=== PATIENT | female | born 1940 | race Caucasian/White ===

== ENCOUNTER 2024-11-30 18:36 | Observation (INO) | payer OTHER, SELFPAY ==
[2024-11-30] VITALS (7 sets, daily range): BP systolic 110–172; BP diastolic 71–122; BMI 24.4; BMI 23.6
--- NOTE | 2024-11-30 12:39 | ED.GENMED ---
ED Provider Triage
<Kristin Tadeo NP - Last Filed: 11/30/24 12:44>
-
Patient seen by provider in Triage?: Seen in Triage
Attestation: A medical screening examination has been initiated by a qualified medical provider. Based on the assessment performed at this time, it has been determined that an emergent medical condition may exist and the patient has been informed
that further medical evaluation and possible additional diagnostic testing may be needed.
HPI: 84-year-old female presents 'I was having severe dizziness at [facility] while rushing (walking fast)to get to a meeting about 1015 this a.m. has had 'breathlessness' for about a month with a 'barky cough.' No known sick contacts. Patient
is on Eliquis for A-fib. Had 'a little' right upper chest pain that has passed.
GENERAL: Alert , in no apparent distress
EYE: No visual abnormalities.
NECK: Trachea midline
ENT: No visible abnormalities.
LUNGS: No acute respiratory distress
NEUROLOGICAL: Alert and oriented
SKIN: Skin intact. No visible changes.
MUSCULOSKELETAL: Moving extremities normally
PSYCH: Normal and appropriate interaction.
This is a medical evaluation conducted in person to initiate diagnostic evaluation and provide initial therapeutics. Please see further documentation by the treating clinician.
History of Present Illness
<Kristin Tadeo NP - Last Filed: 11/30/24 12:44>
General
Chief Complaint: Dizziness
Time Seen by Provider: 11/30/24 14:16
<Becky Fernandez MD - Last Filed: 11/30/24 17:10>
General
Source: patient
History of Present Illness
History of Present Illness:
This patient is an 84-year-old female presents to the emergency department after having an episode of dizziness described as 'room spinning'. When she describes a spinning, she uses her arm in a circular motion to demonstrate what it felt like.
This happened while she was walking down the [place] and she promptly sat down and the spinning continued for 15 to 20 minutes. Now, she says she feels fine. She did not have a sense that she might pass out. She denies associated fever, chest pain,
blurry vision, double vision, trouble swallowing, change in speech, fall, head injury, numbness, tingling, clumsiness, palpitations, or other complaints. Of note, the patient has been describing dyspnea on exertion for the last few months. She saw
a drop wire builder and a midwife practitioner and workup has been unremarkable thus far. She is not currently dyspneic and did not describe dyspnea when she was feeling dizzy.
Past History
<Becky Fernandez MD - Last Filed: 11/30/24 17:10>
Past History
ED Past Medical History: GERD, HTN and Hypothyroidism
ED Past Surgical History: Orthopedic
Social History
Tobacco: Non-smoker
Alcohol: Occasional
Drug: None
Living: assisted living
Phy Exam
<Becky Fernandez MD - Last Filed: 11/30/24 17:10>
Physical Exam
Physical Exam:
GENERAL: Alert , in no apparent distress
EYE: pupils equal and reactive, EOMI, no nystagmus, no photophobia
NECK: Supple, no significant adenopathy.
ENT: o/p clr, mmm.
CARDIAC: Regular rate and rhythm .
LUNGS: Clear breath sounds bilaterally, no acute respiratory distress, no wheezes/rales/rhonchi
ABDOMEN: Soft, without focal tenderness, no r/g, no cvat
NEUROLOGICAL: Alert and oriented, no focal neuro deficits, motor 5 out of 5, sensory intact, cranial nerves II through XII intact, [id number] normal, gait normal
SKIN: Warm and dry, skin intact.
MUSCULOSKELETAL: No edema, well perfused.
PSYCH: Normal and appropriate interaction.
Course
<Kristin Tadeo NP - Last Filed: 11/30/24 12:44>
Orders/Labs/Results
Orders:
Orders
11/30/24 12:32
Electrocardiogram (*1) Urgent
Reason for Study: Vertigo / Dizzy
EKG- Treatment ONCE
11/30/24 12:43
Complete Blood Count/With Diff Urgent
Comprehensive Metabolic Panel Urgent
NT-proBNP Urgent
Comment: ADD ON
Troponin I Urgent
11/30/24 12:44
Add On- LAB Urgent
Tests Added?: BNP
11/30/24 14:33
CT Head W/o Iv Contrast Urgent
Comment:
Reason For Exam: dizzy (spinning)
11/30/24 14:38
CR Chest - 2 Views Urgent
Comment:
Reason For Exam: sob
Abnormal Lab Results
11/30/24
12:43
MCHC 32.3 L g/dL
(33.0-37.0)
RDW 15.6 H %
(11.5-14.5)
Absolute Monos (auto) 0.7 H 10^3/uL
(0.1-0.6)
Lymphocytes % 15.9 L %
(20.5-51.1)
Monocytes % 9.8 H %
(1.7-9.3)
Sodium 133 L mmol/L
(135-145)
Carbon Dioxide 19 L mmol/L
(22-30)
BUN 32 H mg/dl
(7-17)
Glucose 147 H mg/dl
(70-99)
ALT 64 H U/L
(0-35)
11/30/24 12:43
11/30/24 12:43
Vital Signs
Initial and Last Documented VS:
Initial Vital Signs
Temp Pulse Resp BP Pulse Ox
98.1 F 49 16 133/71 98
11/30/24 12:28 11/30/24 12:28 11/30/24 12:28 11/30/24 12:28 11/30/24 12:28
Last Documented Vital Signs
Temp Pulse Resp BP Pulse Ox
98.1 F 58 14 165/92 97
11/30/24 12:28 11/30/24 14:31 11/30/24 14:31 11/30/24 14:01 11/30/24 14:31
<Becky Fernandez MD - Last Filed: 11/30/24 17:10>
Orders/Labs/Results
Orders:
Orders
11/30/24 12:32
Electrocardiogram (*1) Urgent
Reason for Study: Vertigo / Dizzy
EKG- Treatment ONCE
11/30/24 12:43
Complete Blood Count/With Diff Urgent
Comprehensive Metabolic Panel Urgent
NT-proBNP Urgent
Comment: ADD ON
Troponin I Urgent
11/30/24 12:44
Add On- LAB Urgent
Tests Added?: BNP
11/30/24 14:33
CT Head W/o Iv Contrast Urgent
Comment:
Reason For Exam: dizzy (spinning)
11/30/24 14:38
CR Chest - 2 Views Urgent
Comment:
Reason For Exam: sob
Abnormal Lab Results
11/30/24
12:43
MCHC 32.3 L g/dL
(33.0-37.0)
RDW 15.6 H %
(11.5-14.5)
Absolute Monos (auto) 0.7 H 10^3/uL
(0.1-0.6)
Lymphocytes % 15.9 L %
(20.5-51.1)
Monocytes % 9.8 H %
(1.7-9.3)
Sodium 133 L mmol/L
(135-145)
Carbon Dioxide 19 L mmol/L
(22-30)
BUN 32 H mg/dl
(7-17)
Glucose 147 H mg/dl
(70-99)
ALT 64 H U/L
(0-35)
11/30/24 12:43
11/30/24 12:43
Vital Signs
Initial and Last Documented VS:
Initial Vital Signs
Temp Pulse Resp BP Pulse Ox
98.1 F 49 16 133/71 98
11/30/24 12:28 11/30/24 12:28 11/30/24 12:28 11/30/24 12:28 11/30/24 12:28
Last Documented Vital Signs
Temp Pulse Resp BP Pulse Ox
98.1 F 58 14 165/92 97
11/30/24 12:28 11/30/24 14:31 11/30/24 14:31 11/30/24 14:01 11/30/24 14:31
<Becky Fernandez MD - Last Filed: 11/30/24 17:10>
Update Note
Update Note:
Patient presents to the Emergency Department with ___dizziness
Number and Complexity of Problems Addressed at the Encounter
� Chronic conditions affecting care:
� Acute Exacerbation and/or Progression of Chronic Illness:
� Differential Diagnosis includes:
Amount and/or Complexity of Data to be Reviewed and Analyzed
� I performed an independent evaluation of and my interpretation is:
EKG: Read by me, A-fib, bradycardic, no acute ischemic
CT:. No CT evidence for acute intracranial hemorrhage or transcortical infarct.
2. CHRONIC BILATERAL CEREBELLAR INFARCTS (moderate in size in the right and small to moderate in size on the left).
3. Small chronic transcortical infarcts in the superior right frontal and parietal lobes.
4. Severe white matter leukoaraiosis in the frontal and parietal lobes.
5. Mild diffuse cerebral and cerebellar volume loss.
Xrays:Moderate cardiomegaly.
2. Mild bilateral lung hyperinflation.
3. Mild scarring in both lower lungs.
4. Severe thoracic and lumbar discogenic degenerative disease.
5. Severe osteoarthritis of the right glenohumeral joint.
Laboratory Studies: Generally unremarkable
Other:
� Review of other/old records reveals:
� Clinical information was obtained by an independent historian:
� Prescriptions/Medications Considered but not given:
� Further testing considered but not performed:
Risk of Complications and/or Morbidity or Mortality of Patient Management
� Social determinants of health affecting care:
� Discussion with other providers (PCP, Hospitalists, Consultants, etc):
� Escalation of care including admission/observation vs risk of discharge considered: 5:07 PM patient sitting upright in bed, does report still feeling dizzy. She was unaware of ever having had a stroke before, the CT findings
that I described to her are new for her to hear and understand. Particularly given distribution of chronic infarcts, high concern that today's events may reflect a new infarct in the cerebellar area. Recommend admission, aspirin, likely MR
neurology consult. Patient is not a tPA/TNK candidate given NIH equal to 0.
ED Attending Note
<Kristin Tadeo NP - Last Filed: 11/30/24 12:44>
-
Portions of this chart may have been created with voice recognition software.� Occasional wrong word or��sound alike� substitutions may have occurred due to the inherent limitations of voice recognition software.
Discharge Plan
Departure
Patient Disposition: Admit
Date of Disposition: 11/30/24
Time of Disposition: 17:08
Admit to: Telemetry
Presentation/result/management discussed w/ accepting MD/DO: Hospitalist
Condition: Good
Discharge Problem:
Vertigo
Referrals:
Yumiko Balbuena MD [Family Provider] -
Interventions
Interventions:
*Risk Screen - Suicide Last Done: 11/30/24 12:28
*General Assessment Last Done: 11/30/24 14:04
*Neglect/Abuse Screening Last Done: 11/30/24 12:28
ED- Fall Risk Assessment Last Done: 11/30/24 14:04
*ED COVID-19 Vaccine History Last Done: 11/30/24 14:04
ED- Neurological Assessment Last Done: 11/30/24 14:04
ED- Cardiac Assessment Last Done: 11/30/24 14:04
Discharge Date and Time
Print Language: ARABIC
[2024-11-30 13:06] LABS: % Basophils 0.3 % (0-2); % Eosinophils 0.9 % (0-6); % Immature Granulocytes 0.3 % (0-0.5); % Lymphocytes 15.9 % (20.5-51.1); % Monocytes 9.8 % (1.7-9.3); % Neutrophils 72.8 % (42.2-75.2); Absolute Eosinophils 0.1 10^3/uL (0-0.7); Absolute Lymphocytes 1.2 10^3/uL (1.2-3.4); Absolute Monocytes 0.7 10^3/uL (0.1-0.6); Absolute Neutrophils 5.4 10^3/uL (1.4-6.5); Hematocrit 37.8 % (37.0-47.0); Hemoglobin 12.2 g/dL (12.0-16.0); Mean Corp Hgb Conc. 32.3 g/dL (33.0-37.0); Mean Corpuscular Hgb 27.2 pg (27.0-31.0); Mean Corpuscular Volume 84.2 fL (81.0-99.0); Mean Platelet Volume 9.9 fL (7.4-10.4); Nucleated Red Blood Cells % 0 %; Platelet Count 274 10^3/uL (130-400); Red Blood Cell Count 4.49 10^6/uL (4.20-5.40); Red Cell Dist. Width 15.6 % (11.5-14.5); White Blood Cell Count 7.4 10^3/uL (4.8-10.8)
[2024-11-30 13:16] LABS: ALT (SGPT) 64 U/L (0-35); AST (SGOT) 36 U/L (14-36); Albumin 4.3 g/dl (3.5-5.0); Alkaline Phosphatase 125 U/L (38-126); Blood Urea Nitrogen 32 mg/dl (7-17); Carbon Dioxide 19 mmol/L (22-30); Chloride 101 mmol/L (98-107); Glucose 147 mg/dl (70-99); Potassium 5.1 mmol/L (3.5-5.1); Sodium 133 mmol/L (135-145); Total Bilirubin 0.7 mg/dl (0.2-1.3); Total Protein 6.8 g/dl (6.3-8.2); eGFR > 60.00
[2024-11-30 13:35] LABS: NT-proBNP 1990 pg/ml; Troponin I < 0.012 ng/ml
[2024-11-30] MEDS: ASPIRIN 325 MG PO (17:44)
--- NOTE | 2024-11-30 17:50 | HPS.HSE ---
Family Physician
-
Family Physician: Yumiko Balbuena
Chief Complaint
-
dizzy.
History of Present Illness
84-year-old with PMH for atrial fib, ,hypothyroidism, COPD presents with severe dizziness at [place] while walking. it last for few minutes. denied any dizzy since she got here. denied BALDERRAMA, syncope. denied fever, chills, congestion stated
chronic cough for one months.she has chornic sob and LE edema. denied chest pain. denied abdominal pain,n,v,d. denied dysuria or hematuria.
head CT with CHRONIC BILATERAL CEREBELLAR INFARCTS (moderate in size in the right and small to moderate in size on the left).
received asa in ER. admitting for further management.
Medical History
Past Medical History
Past Medical History: Reports Other
Additional Past Medical History:
HTN
hypothyroidism
asthma/COPD
Past Surgical History: Reports Other
Additional Past Surgical History:
b/l hip replacement
left knee replacement.
Social History
Tobacco: Non-smoker
Alcohol: Former
Drug: None
Personal: Single
Family History
Family History: Not pertinent
Allergies / Home Medications
Allergies reflects when Allergies were last updated in [employer].
Home Medications with original date entered in [employer]
Allergy/Medication List:
Allergies
Allergy/AdvReac Type Severity Reaction Status Date / Time
No Known Allergies Allergy Verified 11/30/24 12:31
Home Medications
apixaban 5 mg tablet (Eliquis) 2.5 mg PO BID 11/30/24
ascorbic acid (vitamin C) 500 mg tablet (Vitamin C) 500 mg PO DAILY 11/30/24
cyanocobalamin (vitamin B-12) 1,000 mcg tablet 1,000 mcg PO DAILY 11/30/24
diltiazem HCl 360 mg capsule,24 hr,extended release 360 mg PO DAILY 11/30/24
fluticasone fur. 200 mcg-umeclid 62.5 mcg-vilant 25 mcg inhalat.powder (Trelegy Ellipta) 1 inh inhalation R DAILY 11/30/24
latanoprost 0.005 % eye drops 1 drp BOTH EYES HS 11/30/24
levothyroxine 50 mcg tablet 50 mcg PO DAILY 11/30/24
omeprazole 20 mg capsule,delayed release 20 mg PO DAILY 11/30/24
therapeutic multivitamin 1 tab PO DAILY 11/30/24
trazodone 50 mg tablet 50 mg PO HS 11/30/24
vitamin E 268 mg (400 unit) capsule 268 mg PO DAILY 11/30/24
Review of Systems
-
Constitutional: Reports No Symptoms
EENT: Reports No Symptoms
Respiratory: Reports No Symptoms
Cardiac: Reports No Symptoms
Abdomen/GI: Reports No Symptoms
: Reports No Symptoms
Musculoskeletal: Reports No Symptoms
Skin: Reports No Symptoms
Neurological: Reports Dizzy
Endocrine: Reports No Symptoms
Hematologic/Lymphatic: Reports No Symptoms
Psych: Reports No Symptoms
Physical Exam
Vital Signs
Vital Signs
Temp Pulse Resp BP Pulse Ox
98.1 F 87 19 165/92 98
11/30/24 12:28 11/30/24 17:15 11/30/24 17:15 11/30/24 14:01 11/30/24 17:15
Physical Exam
General: Well Developed, Well Nourished and No Apparent Distress
HEENT: NormoCephalic, Moist mucous membranes and Atraumatic
Respiratory: Clear
Cardiac: S1/S2 and Regular Rhythm; No Murmur or Rub
GI: Soft, Non Tender, Non Distended and Normal Bowel Sounds; No Organomegaly
Rectal: Deferred by Provider
Musculoskeletal: No Clubbing, No Cyanosis and Other (LE edema)
Skin: No Rash
Neuro: AO x 3 and Nonfocal/grossly intact
Psych: Calm
Laboratory Results
-
11/30/24 12:43
11/30/24 12:43
Laboratory Results
Total Bilirubin 0.7 mg/dl (0.2-1.3) 11/30/24 12:43
AST 36 U/L (14-36) 11/30/24 12:43
ALT 64 U/L (0-35) H 11/30/24 12:43
Alkaline Phosphatase 125 U/L (38-126) 11/30/24 12:43
Troponin I < 0.012 ng/ml 11/30/24 12:43
Data Reviewed
-
CT Scan: Report Reviewed by me
Lab Data: Labs Reviewed by me
Impression/Plan
-
#vertigo concern for acute cerebellum stroke
-CT head with the impression of No CT evidence for acute intracranial hemorrhage or transcortical infarct.
2. CHRONIC BILATERAL CEREBELLAR INFARCTS (moderate in size in the right and small to moderate in size on the left).
3. Small chronic transcortical infarcts in the superior right frontal and parietal lobes.
4. Severe white matter leukoaraiosis in the frontal and parietal lobes.
5. Mild diffuse cerebral and cerebellar volume loss.
-obtain MRI/MRA
-obtain a1c,lipid profile
-asa and statin
-PT/OT
-neurology consulted
#atrial fib likely permanent
-EKG with atrial fib
-eliquis,Cardizem continued
#possible COPD
-nebs from home continued
#Hypothyroidism
-levothyroxine continued
#GERD
-PPi continued
#DVT prophylaxis
-eliquis
#CODE status
-full code
--- NOTE | 2024-11-30 18:14 | W.PN.UPDATE ---
Update Note
Progress Note Update
This is an addendum to the H&P written by Chantelle Bhatt on 11/30/2024. Patient seen and examined independently with CHIEF DEPUTY CLERK/BAILIFF.
84-year-old female past medical history of paroxysmal atrial fibrillation on Eliquis, hypothyroidism, GERD, presenting with vertigo at [facility] while walking fast to go to a meeting.
She has been having chronic shortness of breath with barky cough which is being managed as COPD which is being managed with inhaler by pulmonology. She had been having lower extremity edema for which she saw cardiology who does not think she has a
cardiac problem.
No other neurological symptoms. No focal neurological deficits.
CT head shows chronic bilateral cerebellar infarcts, small chronic transcortical infarct in the superior right frontal and parietal lobes.
Concern for further acute cerebellar strokes despite being on Eliquis. Continue Eliquis. Check MRI/MRA head and neck. Check A1c and lipid panel. Neurology consulted.
[2024-11-30] MEDS: XALATAN OPHTHALMIC SOLUTION 1 DROP BOTH EYES (22:25)
[2024-11-30] MEDS: DESYREL 50 MG PO (22:25)
[2024-11-30] MEDS: ELIQUIS 2.5 MG PO (22:25)
[2024-11-30] MEDS: CARDIZEM CD 360 MG PO (23:43)
[2024-12-01 02:53] VITALS: BMI 23.6
[2024-12-01 03:33] VITALS: BP 124/74
--- NOTE | 2024-12-01 04:39 | PTCARENOTE ---
pt on tele afib w/ pauses. HR40-60's BP stable. will continue to monitor.
[2024-12-01] MEDS: SYNTHROID 50 MCG PO (06:24)
[2024-12-01 07:41] VITALS: BP 140/86
--- NOTE | 2024-12-01 07:46 | CON.NEURO ---
Consultation
Order
Date of Consultation: 12/01/24
Requesting Provider:
Chantelle Bhatt CRNP
Reason for Consult: Vertigo
Neurology Consultation Note.
HPI: This is an 84-year-old right-handed woman who presented to [facility] on 11/30/2024 with transient vertigo. According to the patient she developed an acute nonpositional sensation of spinning lasting for 20 minutes on the day of
presentation. No associated headache, visual, motor, sensory symptoms, similar episodes in the past. Ms. Elder denies having ear pain, nasal congestion, tinnitus, recent fever head trauma. No history of strokes.
Ms. Elder has been compliant with Eliquis.
ER VS: 133/71, 49, afebrile
EKG: A-fib, HR 48
PDMP:none
Labs: Sodium�133, glucose�147, normal WBCs.
CT head wo contrast�chronic bilateral cerebellar, R MCA infarcts, diffuse atrophy
PMH: A-Fib, hypothyroidism, COPD, insomnia, glaucoma, OA, SNHL
PSH: Bilateral cataract surgery, bilateral MATTHEW, left TKA
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
FH: Mother�coronary artery disease, father in accident
All:NKDA
ROS: Constitutional: Negative. Negative for chills, fever and unexpected weight change.
HENT: Positive for hearing impairment, transient vertigo
Eyes: Negative. Negative for photophobia, pain and visual disturbance.
Respiratory: Negative for cough, choking and shortness of breath.
Cardiovascular: Negative for chest pain, palpitations and leg swelling.
Gastrointestinal: Negative for abdominal pain and vomiting.
Endocrine: Negative. Negative for cold intolerance.
Genitourinary: Negative for dysuria, flank pain and urgency.
Musculoskeletal: Negative for back pain, gait problem, neck pain and neck stiffness.
Skin: Negative for rash.
Allergic/Immunologic: Negative. Negative for immunocompromised state.
Neurological: Positive for transient vertigo
Psychiatric/Behavioral: Negative for behavioral problems, confusion and hallucinations.
General: Well developed. In no acute distress.
Cardio: Regular rate and rhythm without murmur. Extremities are without cyanosis or edema.
Neuro:
Mental Status: Alert, oriented to person, place, and date. Normal attention and recall. Good fund of knowledge. Follows complex requests across the midline. Comprehension, naming, and repetition intact. Immediate recall 3/3.
Cranial Nerves: Pupils are 3 mm, surgical. EOMs full. Visual holloway full to confrontation. No ptosis. No nystagmus. V1-V3 intact to light touch and pinprick bilaterally, symmetric. Face symmetric. Normal hearing AU. The palate elevated well.
SCMs and traps 5/5. Tongue midline. No dysarthria.
Motor: Normal bulk and tone. No pronator or arm drift. Strength 5/5 throughout. No clonus.
Reflexes: Negative grasp bilaterally
Sensory: Normal the patient at the toes
Coordination: No dysmetria or tremor.
Gait: deferred
Assessment and Plan:
I. TIA
II. 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
III. A-fib
-Continue Telemetry monitoring.
-Continue aspirin 81 mg once a day for now.
-Brain MRI without james
-Transthoracic echo
-CTA head and neck
-Please check hemoglobin A1c and LDL
-PT.
-DVT prophylaxis.
I personally reviewed all radiology and labs along with past medical records pertinent to current medical problems. Total time spent in patient care is 60 minutes.
Thank you for allowing us to participate in the care of this patient. We will continue to follow. Please do not hesitate to contact us with any questions or concerns.
Subjective/Objective
Subjective Data
Date of Service: December 01, 2024
Objective Data
Vital Signs
Temp Pulse Resp BP Pulse Ox
36.7 C 82 18 140/86 96
12/01/24 07:41 12/01/24 07:41 12/01/24 07:41 12/01/24 07:41 12/01/24 07:41
Lab Results
11/30/24 12:43
11/30/24 12:43
Sodium 133 mmol/L (135-145) L 11/30/24 12:43
Potassium 5.1 mmol/L (3.5-5.1) 11/30/24 12:43
BUN 32 mg/dl (7-17) H 11/30/24 12:43
Glucose 147 mg/dl (70-99) H 11/30/24 12:43
Calcium 9.0 mg/dl (8.4-10.2) 11/30/24 12:43
Tzi-Q-Nadgzuzoqdx Pept 1990 pg/ml 11/30/24 12:43
Patient Allergies
No Known Allergies Allergy (Verified 11/30/24 12:31)
Medications
-
Active Medications
Generic Name Dose Route Start Last Admin
Trade Name Freq PRN Reason Stop Dose Admin
Acetaminophen 650 mg 11/30/24 21:42
Acetaminophen 650 Mg Rectal Suppository RECTAL 12/28/24 21:41
Q4HPRN PRN
BALDERRAMA, mild pain, or temp >100.4F
Acetaminophen 650 mg 11/30/24 21:42
Acetaminophen 325 Mg Tablet PO 12/28/24 21:41
Q4HPRN PRN
BALDERRAMA, mild pain, or temp >100.4F
Apixaban 2.5 mg 11/30/24 21:45 11/30/24 22:25
Apixaban (Eliquis) 2.5 Mg Tablet PO 12/28/24 21:44 2.5 mg
BID JENN Administration
Aspirin 81 mg 12/01/24 08:00
Aspirin 81 Mg Chewable Tablet PO 12/29/24 07:59
DAILY JENN
Atorvastatin Calcium 40 mg 12/01/24 18:00
Atorvastatin (Lipitor) 40 Mg Tablet PO 12/29/24 17:59
QPM JENN
Budesonide/Formoterol Fumarate 2 puff 12/01/24 08:00
Symbicort Inhaler 160/4.5 INH 12/29/24 07:59
R BID JENN
Protocol
Diltiazem HCl 360 mg 12/01/24 08:00
Diltiazem 180 Mg Extended Release (24 H) Capsule PO 12/29/24 07:59
DAILY JENN
Latanoprost 0 drop 11/30/24 22:00 11/30/24 22:25
Latanoprost 0.005% (Ophthalmic Solution) 2.5 Ml Bottle BOTH EYES 12/28/24 21:59 1 drop
HS JENN Administration
Levothyroxine Sodium 50 mcg 12/01/24 06:00 12/01/24 06:24
Levothyroxine 50 Mcg Tablet PO 12/29/24 05:59 50 mcg
DAILY @ 0600 JENN Administration
Pantoprazole Sodium 40 mg 12/01/24 08:00
Pantoprazole 40 Mg Delayed Release Tablet PO 12/29/24 07:59
DAILY JENN
Sodium Chloride 0 flush 11/30/24 22:00
Sodium Chloride 0.9% (Flush) Syringe IV 12/28/24 21:59
PER PROTOCOL JENN
Tiotropium [place] 2 puff 12/01/24 08:00
Tiotropium (Spiriva Respimat) 2.5 Mcg Inhaler INH 12/29/24 07:59
R DAILY JENN
Protocol
Trazodone HCl 50 mg 11/30/24 22:00 11/30/24 22:25
Trazodone 50 Mg Tablet PO 12/28/24 21:59 50 mg
HS JENN Administration
Home Medications
�Medication �Instructions �Recorded
apixaban 5 mg tablet (Eliquis) 2.5 mg PO BID 11/30/24
ascorbic acid (vitamin C) 500 mg 500 mg PO DAILY 11/30/24
tablet (Vitamin C)
cyanocobalamin (vitamin B-12) 1,000 mcg PO DAILY 11/30/24
1,000 mcg tablet
diltiazem HCl 360 mg capsule,24 360 mg PO DAILY 11/30/24
hr,extended release
fluticasone fur. 200 mcg-umeclid 1 inh inhalation R DAILY 11/30/24
62.5 mcg-vilant 25 mcg
inhalat.powder (Trelegy Ellipta)
latanoprost 0.005 % eye drops 1 drp BOTH EYES HS 11/30/24
levothyroxine 50 mcg tablet 50 mcg PO DAILY 11/30/24
omeprazole 20 mg capsule,delayed 20 mg PO DAILY 11/30/24
release
therapeutic multivitamin 1 tab PO DAILY 11/30/24
trazodone 50 mg tablet 50 mg PO HS 11/30/24
vitamin E 268 mg (400 unit) capsule 268 mg PO DAILY 11/30/24
Vital Signs and Labs
-
Vital Signs and Labs:
Vital Signs
Temp Pulse Resp BP Pulse Ox
36.7 C 82 18 140/86 96
12/01/24 07:41 12/01/24 07:41 12/01/24 07:41 12/01/24 07:41 12/01/24 07:41
Lab Results
11/30/24 12:43
12/01/24 07:06
Sodium 135 mmol/L (135-145) 12/01/24 07:06
Potassium 4.3 mmol/L (3.5-5.1) 12/01/24 07:06
BUN 23 mg/dl (7-17) H 12/01/24 07:06
Glucose 88 mg/dl (70-99) 12/01/24 07:06
Calcium 9.1 mg/dl (8.4-10.2) 12/01/24 07:06
Rvk-B-Djqzajxbofg Pept 1990 pg/ml 11/30/24 12:43
LDL Cholesterol, Calc 106 mg/dl 12/01/24 07:06
Medications
-
Medications:
Generic Name Dose Route Start Last Admin
Trade Name Freq PRN Reason Stop Dose Admin
Acetaminophen 650 mg 11/30/24 21:42
Acetaminophen 650 Mg Rectal Suppository RECTAL 12/28/24 21:41
Q4HPRN PRN
BALDERRAMA, mild pain, or temp >100.4F
Acetaminophen 650 mg 11/30/24 21:42
Acetaminophen 325 Mg Tablet PO 12/28/24 21:41
Q4HPRN PRN
BALDERRAMA, mild pain, or temp >100.4F
Apixaban 2.5 mg 11/30/24 21:45 12/01/24 08:31
Apixaban (Eliquis) 2.5 Mg Tablet PO 12/28/24 21:44 2.5 mg
BID JENN Administration
Aspirin 81 mg 12/01/24 08:00 12/01/24 09:14
Aspirin 81 Mg Chewable Tablet PO 12/29/24 07:59 Not Given
DAILY JENN
Atorvastatin Calcium 40 mg 12/01/24 18:00
Atorvastatin (Lipitor) 40 Mg Tablet PO 12/29/24 17:59
QPM JENN
Budesonide/Formoterol Fumarate 2 puff 12/01/24 08:00 12/01/24 08:09
Symbicort Inhaler 160/4.5 INH 12/29/24 07:59 2 puff
R BID JENN Administration
Protocol
Diltiazem HCl 360 mg 12/01/24 22:00
Diltiazem 180 Mg Extended Release (24 H) Capsule PO 12/29/24 21:59
HS JENN
Latanoprost 0 drop 11/30/24 22:00 11/30/24 22:25
Latanoprost 0.005% (Ophthalmic Solution) 2.5 Ml Bottle BOTH EYES 12/28/24 21:59 1 drop
HS JENN Administration
Levothyroxine Sodium 50 mcg 12/01/24 06:00 12/01/24 06:24
Levothyroxine 50 Mcg Tablet PO 12/29/24 05:59 50 mcg
DAILY @ 0600 JENN Administration
Pantoprazole Sodium 40 mg 12/01/24 08:00 12/01/24 08:31
Pantoprazole 40 Mg Delayed Release Tablet PO 12/29/24 07:59 40 mg
DAILY JENN Administration
Sodium Chloride 0 flush 11/30/24 22:00
Sodium Chloride 0.9% (Flush) Syringe IV 12/28/24 21:59
PER PROTOCOL JENN
Tiotropium [place] 2 puff 12/01/24 08:00 12/01/24 08:08
Tiotropium (Spiriva Respimat) 2.5 Mcg Inhaler INH 12/29/24 07:59 2 puff
R DAILY JENN Administration
Protocol
Trazodone HCl 50 mg 11/30/24 22:00 11/30/24 22:25
Trazodone 50 Mg Tablet PO 12/28/24 21:59 50 mg
HS JENN Administration
Home Medications
-
Home Medications
apixaban 5 mg tablet (Eliquis) 2.5 mg PO BID 11/30/24
ascorbic acid (vitamin C) 500 mg tablet (Vitamin C) 500 mg PO DAILY 11/30/24
cyanocobalamin (vitamin B-12) 1,000 mcg tablet 1,000 mcg PO DAILY 11/30/24
diltiazem HCl 360 mg capsule,24 hr,extended release 360 mg PO DAILY 11/30/24
fluticasone fur. 200 mcg-umeclid 62.5 mcg-vilant 25 mcg inhalat.powder (Trelegy Ellipta) 1 inh inhalation R DAILY 11/30/24
latanoprost 0.005 % eye drops 1 drp BOTH EYES HS 11/30/24
levothyroxine 50 mcg tablet 50 mcg PO DAILY 11/30/24
omeprazole 20 mg capsule,delayed release 20 mg PO DAILY 11/30/24
therapeutic multivitamin 1 tab PO DAILY 11/30/24
trazodone 50 mg tablet 50 mg PO HS 11/30/24
vitamin E 268 mg (400 unit) capsule 268 mg PO DAILY 11/30/24
[2024-12-01] MEDS: SPIRIVA RESPIMAT 2.5 MCG 2 PUFF INH (08:08)
[2024-12-01] MEDS: SYMBICORT 160/4.5 MCG INHALER 2 PUFF INH (08:09)
[2024-12-01 08:14] LABS: HDL Cholesterol 68 mg/dl; LDL Cholesterol, Calculated 106 mg/dl; Total Cholesterol 189 mg/dl (50-199); Triglyceride 77 mg/dl (10-149); Very Low Density Lipoprotein 15 mg/dl (0-30)
[2024-12-01] MEDS: PROTONIX 40 MG PO (08:31)
[2024-12-01] MEDS: ELIQUIS 2.5 MG PO (08:31)
[2024-12-01 09:22] LABS: Blood Urea Nitrogen 23 mg/dl (7-17); Calcium 9.1 mg/dl (8.4-10.2); Carbon Dioxide 23 mmol/L (22-30); Chloride 101 mmol/L (98-107); Estimated Creatinine Clearance 44 ml/min; Glucose 88 mg/dl (70-99); Magnesium 1.9 mg/dl (1.6-2.3); Potassium 4.3 mmol/L (3.5-5.1); Sodium 135 mmol/L (135-145); eGFR > 60.00
[2024-12-01 09:39] LABS: Glycohemoglobin (HgbA1c) 5.9 % (4.0-5.6)
--- NOTE | 2024-12-01 10:29 | W.PN.HOSP.TC ---
Today's Communication/Plan
-
MRI
Assessment / Plan
Assessment / Plan
84-year-old female admitted with dizziness and vertigo
11/30/2024-CT head with the impression of No CT evidence for acute intracranial hemorrhage or transcortical infarct. CHRONIC BILATERAL CEREBELLAR INFARCTS (moderate in size in the right and small to moderate in size on the left).Small chronic
transcortical infarcts in the superior right frontal and parietal lobes.Severe white matter leukoaraiosis in the frontal and parietal lobes.Mild diffuse cerebral and cerebellar volume loss.
CVS: S1-S2 irregular
Chest: CTA B/L
Abdomen: Soft, NT ,Bowel sounds present
Extremities: No edema
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
# Vertigo concern for CVA
CT as above
Currently on Eliquis-Aspirin and statin added
Check MRI/MRI
Hemoglobin A1c and lipid profile
Neurology evaluation
PT OT consultation
# Mild hyponatremia-repeat
# Permanent atrial fibrillation-continue Eliquis and Cardizem
# Asthma/COPD-on Trelegy Ellipta as outpatient-continue equivalent
# Hypothyroidism-continue levothyroxine
# GERD-continue PPI
# Insomnia-continue trazodone
# DVT prophylaxis-Eliquis
# Full code
Anticipated Discharge: Within 24 hours
Subjective/Interval History
-
Date of Service: December 01, 2024
Objective Data
-
Labs:
Laboratory Results
12/01/24
07:06
Sodium 135
Potassium 4.3
Chloride 101
Carbon Dioxide 23
BUN 23 H
Creatinine 0.7
Glucose 88
Calcium 9.1
Vital Signs:
Vital Signs
Temp Pulse Resp BP Pulse Ox
98.0 F 82 18 140/86 96
12/01/24 07:41 12/01/24 07:41 12/01/24 07:41 12/01/24 07:41 12/01/24 07:41
[2024-12-01 12:17] VITALS: BP 158/94
[2024-12-01 12:25] VITALS: BP 158/94
[2024-12-01 12:46] VITALS: BP 128/87; PULSE 70; O2SAT 100
--- NOTE | 2024-12-01 12:50 | PTOTSP ---
pt currently requires supervision to no assistance to complete simple ADLs, functional transfers, ambulation. no acute OT needs identified at this time, will sign off.
--- NOTE | 2024-12-01 13:30 | CM ---
Patient seen bedside with daughter in room.
IA completed.
Patient lives at independent living at [facility].
Patient has elevator access, no assistive devices.
Patient attends outpatient therapy and would clarissa to resume post d/c.
PT recommending outpatient therapy.
Will need script for outpatient therapy.
Family will transport on d/c.
IMM completed.
PCP: Dr Balbuena
Pharmacy: [facility]
Plan: home with outpatient therapy
--- NOTE | 2024-12-01 15:12 | PTOTSP ---
Speech Language Pathology
Pt seen for clinical bedside swallow evaluation. Family present at bedside. Pt denied any difficulty chewing or swallowing at baseline. P.O. trials of puree, regular solids, and thin liquids provided. Adequate mastication, bolus formation, and
A-P transit noted with no oral residue. No overt signs of aspiration.
Recommend:
(1) Regular solids/thin liquids
(2) General aspiration precautions
(3) Meds as tolerated
(4) RAIL WASHER to sign off given negative MRI. Please reconsult as indicated
--- NOTE | 2024-12-01 18:30 | W.DS.TRANS ---
Addendum entered and electronically signed by Luis Larson MD 12/02/24 08:33:
Dictation- [id number]
Original Note:
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
-
Discharge Instructions:
Sleep Apnea Risk Low
Discharge Diagnosis/Procedures Vertigo with chronic bilateral cerebellar
infarcts, hyponatremia, permanent atrial
fibrillation, asthma/chronic obstructive
pulmonary disease, hypothyroidism,
gastroesophageal reflux disease, insomnia
Diet Low Cholesterol
Activity As tolerated
Driving Restrictions Not until seen by your Dr
Bathing Restrictions None
Other Services PT
Instructions:
Stand-Alone Forms:
Changes to Home Medications: No
Discharge Medications:
DC Medications w/original date entered in [email or web address]
apixaban 5 mg tablet (Eliquis) 2.5 mg (1/2 x 5 mg) PO BID Blood clot prevention/tx #0 tabs 12/01/24
ascorbic acid (vitamin C) 500 mg tablet (Vitamin C) 500 mg PO DAILY Supplement #0 tabs 12/01/24
cyanocobalamin (vitamin B-12) 1,000 mcg tablet 1,000 mcg PO DAILY Supplement #0 tabs 12/01/24
diltiazem HCl 360 mg capsule,24 hr,extended release 360 mg PO HS Heart disease/condition #0 caps 12/01/24
fluticasone fur. 200 mcg-umeclid 62.5 mcg-vilant 25 mcg inhalat.powder (Trelegy Ellipta) 1 inh inhalation R DAILY Lung/breathing issues #0 ea 12/01/24
latanoprost 0.005 % eye drops 1 drp BOTH EYES HS Eye condition #0 mL 12/01/24
levothyroxine 50 mcg tablet 50 mcg PO DAILY Thyroid #0 tabs 12/01/24
omeprazole 20 mg capsule,delayed release 20 mg PO DAILY Gastrointestinal issue #0 caps 12/01/24
therapeutic multivitamin 1 tab PO DAILY Supplement #0 tabs 12/01/24
trazodone 50 mg tablet 50 mg PO HS Sleep #0 tabs 12/01/24
Home Medication Changes
Pending Results: No
--- NOTE | 2024-12-01 18:30 | W.PN.UPDATE ---
Update Note
Progress Note Update
DW neuro earlier
Continue eliquis
SPOKE TO DAUGHTERS RE ECHO FINDINGS AND mr AND TR
Follows with Dr Souza
OP PT script from PCP discussed.
Discharge
[2024-12-01 18:38] VITALS: BP 152/96
== END 2024-12-01 18:55 | disposition home or self-care (01) ==
LOC: 1 ACUTE 18:36
PROVIDERS: Emergency Medicine; Registered Nurse; ADMITTING PHYSICIAN Hospitalist; ATTENDING PHYSICIAN Hospitalist; CONSULT PHYSICIAN Psychiatry & Neurology Neurology; EMERGENCY PHYSICIAN Emergency Medicine; FAMILY PHYSICIAN Internal Medicine Geriatric Medicine
DX: R42 Dizziness and giddiness (principal); I67.81 Acute cerebrovascular insufficiency; R05.9 Cough, unspecified; R06.02 Shortness of breath; I48.21 Permanent atrial fibrillation; R07.89 Other chest pain; I10 Essential (primary) hypertension; E03.9 Hypothyroidism, unspecified; K21.9 Gastro-esophageal reflux disease without esophagitis; M19.011 Primary osteoarthritis, right shoulder; I65.23 Occlusion and stenosis of bilateral carotid arteries; M51.34 Other intervertebral disc degeneration, thoracic region; I08.1 Rheumatic disorders of both mitral and tricuspid valves; I70.0 Atherosclerosis of aorta; M50.30 Other cervical disc degeneration, unspecified cervical region; M43.12 Spondylolisthesis, cervical region; I67.82 Cerebral ischemia; E87.1 Hypo-osmolality and hyponatremia; J44.89 Other specified chronic obstructive pulmonary disease; G47.00 Insomnia, unspecified; Z79.890 Hormone replacement therapy; Z79.51 Long term (current) use of inhaled steroids; Z79.01 Long term (current) use of anticoagulants; Z86.73 Personal history of transient ischemic attack (TIA), and cerebral infarction without residual deficits; Z96.643 Presence of artificial hip joint, bilateral; Z96.652 Presence of left artificial knee joint; Z82.49 Family history of ischemic heart disease and other diseases of the circulatory system; Z79.82 Long term (current) use of aspirin; Z60.2 Problems related to living alone
CPT/HCPCS: 70450; 70496; 70498; 70544; 70551; 71046; 80048; 80053; 80061; 83036; 83735; 83880; 84484; 85025; 87070; 92610; 93005; 93306; 94640; 97162; 97165; 99285; G0378; Q9967